=== PATIENT | male | born 1960 | race African-American/Black ===

== ENCOUNTER → 2024-04-02 06:51 | Day surgery (SDC) | payer OTHER, SELFPAY | LOC: GI 06:51 | PROVIDERS: ATTENDING PHYSICIAN Internal Medicine Gastroenterology | DX: Z12.11 Encounter for screening for malignant neoplasm of colon (principal); K62.1 Rectal polyp; K64.8 Other hemorrhoids | CPT/HCPCS: 45380; 88305 ==